=== PATIENT | female | born 1980 | race American Indian/Alaskan Native ===

== ENCOUNTER 2017-04-27 14:17 | Emergency (ER) | payer MEDICAID ==
[2017-04-27 14:58] VITALS: BP 147/86
[2017-04-27 15:38] LABS: Basophils % (Auto) 0.8 % (0.0-1.8); Eosinophils % (Auto) 2.6 % (0.0-4.3); Hematocrit 39.6 % (30.3-42.9); Hemoglobin 13.1 gm/dl (10.1-14.3); Mean Corpuscular HGB Conc 33 % (30-34); Mean Corpuscular Hemoglobin 29 pg (28-32); Mean Corpuscular Volume 88 fl (79-97); Platelet Count 208 K/mm3 (140-440); Red Blood Count 4.48 M/mm3 (3.65-5.03); Red Cell Distribution Width 13.4 % (13.2-15.2); White Blood Count 5.6 K/mm3 (4.5-11.0)
[2017-04-27 15:59] LABS: Anion Gap 18 mmol/L; Blood Urea Nitrogen 11 mg/dL (7-17); Carbon Dioxide 25 mmol/L (22-30); Chloride 103.8 mmol/L (98-107); Glucose 83 mg/dL (65-100); Sodium 143 mmol/L (137-145)
--- NOTE | 2017-04-27 17:02 | XRay Report ---
FINAL REPORT PROCEDURE: XR CHEST ROUTINE 2V TECHNIQUE: PA and lateral chest radiographs were obtained. CPT 58497 HISTORY: Shortness of breath COMPARISON: No prior studies are available for comparison. FINDINGS: Heart: Normal contour. Mediastinum/Vessels: Normal contour. Lungs/Pleural space: No infiltrate, effusion, or pneumothorax. Bony thorax: No acute osseous abnormality. Other: IMPRESSION: No pulmonary infiltrates are identified.
== END 2017-04-27 18:55 | disposition left against medical advice (07) ==
LOC: ED 14:17
DX: R07.9 Chest pain, unspecified (principal); R42 Dizziness and giddiness; Z53.21 Procedure and treatment not carried out due to patient leaving prior to being seen by health care provider
CPT/HCPCS: 36415; 71020; 80048; 82962; 83690; 84484; 84702; 85025; 93005; 93010

== ENCOUNTER 2017-05-02 09:01 | Outpatient (CLI) | payer MEDICAID, OTHER ==
--- NOTE | 2017-05-02 16:38 | Ultrasound Report ---
Transabdominal and transvaginal pelvic ultrasound. History: Pelvic pain. Findings: The uterus is normal in size and configuration with no focal abnormalities. The endometrial echo is normal and measures 4.2 mm in thickness. The ovaries are normal in size and configuration. There is a 1.2 cm in diameter cyst in the right ovary. Small follicular cysts are noted bilaterally. Minimal free fluid is seen within the cul-de-sac. Impression: Small right ovarian cyst with minimal free fluid.
== END 2017-05-02 09:02 | disposition home or self-care (01) ==
LOC: US 09:01
PROVIDERS: ATTEND Internal Medicine
DX: N83.01 Follicular cyst of right ovary (principal); N83.02 Follicular cyst of left ovary
CPT/HCPCS: 76830; 76856

== ENCOUNTER 2017-07-14 04:50 | Emergency (ER) | payer SELFPAY ==
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
[2017-07-14 07:59] VITALS: BP 102/67
[2017-07-14 08:12] LABS: Bacteria,Urine 1+ /HPF (Negative); Bilirubin,Urine NEG (Negative); Blood,Urine NEG (Negative); Ketones,Urine NEG (Negative); Leukocyte Esterase,Urine NEG (Negative); Mucus,Urine FEW /HPF; Nitrite,Urine NEG (Negative); Protein,Urine <15 mg/dL mg/dL (Negative); Urobilinogen,Urine < 2.0 mg/dL (<2.0); WBC,Urine < 1.0 /HPF (0.0-6.0)
== END 2017-07-14 08:15 | disposition home or self-care (01) ==
LOC: ED 04:50
DX: M79.1 Myalgia (principal); J06.9 Acute upper respiratory infection, unspecified; B34.9 Viral infection, unspecified; G89.29 Other chronic pain
CPT/HCPCS: 81001; 81025; 87116; 87430; 99283

== ENCOUNTER 2017-11-14 10:50 | Outpatient (CLI) | payer MEDICAID ==
[2017-11-14 11:45] LABS: Blood Urea Nitrogen 7 mg/dL (7-17)
--- NOTE | 2017-11-14 15:08 | Cat Scan Report ---
CT ABDOMEN PELVIS WITH CONTRAST: HISTORY: Abnormal uterine and vaginal bleeding. COMPARISON: none. TECHNIQUE: Helical CT in 1.25mm intervals following IV contrast. Sagittal and coronal reconstructions. FINDINGS: Lung bases: Normal. Liver: Normal. Biliary system: Normal. Pancreas: Normal. Spleen: Normal. Kidneys/ureters/bladder: Normal. Adrenal glands: Normal. Aorta: Normal. Intestines: Normal. Appendix: Normal. Pelvic viscera: The uterus is anteverted. No evidence for uterine mass or fibroid disease. The endometrium is not thickened. The left ovary is normal. An approximate 2 cm peripheral enhancing right ovarian cyst is noted. Ascites: None. Adenopathy: None. Musculoskeletal: Normal. IMPRESSION: 2 cm right ovarian cyst. No clear explanation for abnormal uterine/vaginal bleeding. Otherwise, unremarkable CT of the abdomen and pelvis.
== END 2017-11-14 10:51 | disposition home or self-care (01) ==
LOC: CT 10:50
PROVIDERS: ATTEND Internal Medicine
DX: N83.201 Unspecified ovarian cyst, right side (principal); R14.0 Abdominal distension (gaseous)
CPT/HCPCS: 36415; 74177; 82565; 84520; Q9967

== ENCOUNTER 2018-03-07 19:58 | Emergency (ER) | payer SELFPAY ==
[2018-03-07] MEDS ORDERED: ASPIRIN PO ONE (20:15)
[2018-03-07 20:42] LABS: Basophils % (Auto) 0.3 % (0.0-1.8); Eosinophils # (Auto) 0.1 K/mm3 (0.0-0.4); Eosinophils % (Auto) 1.2 % (0.0-4.3); Hematocrit 42.6 % (30.3-42.9); Hemoglobin 13.4 gm/dl (10.1-14.3); Lymphocytes # (Auto) 2.3 K/mm3 (1.2-5.4); Mean Corpuscular HGB Conc 32 % (30-34); Mean Corpuscular Hemoglobin 29 pg (28-32); Mean Corpuscular Volume 91 fl (79-97); Monocytes # (Auto) 0.5 K/mm3 (0.0-0.8); Monocytes % (Auto) 7.8 % (0.0-7.3); Platelet Count 209 K/mm3 (140-440); Red Blood Count 4.71 M/mm3 (3.65-5.03); Red Cell Distribution Width 13.7 % (13.2-15.2)
[2018-03-07 20:57] LABS: Alanine Aminotransferase 22 units/L (7-56); Albumin 4.1 g/dL (3.9-5); BUN/Creatinine Ratio 10; Blood Urea Nitrogen 8 mg/dL (7-17); Calcium 9.3 mg/dL (8.4-10.2); Hemolysis Index 5
--- NOTE | 2018-03-07 23:51 | XRay Report ---
FINAL REPORT PROCEDURE: XR CHEST ROUTINE 2V TECHNIQUE: PA and lateral chest radiographs were obtained. CPT 11508 HISTORY: sob COMPARISON: 04/27/2017 FINDINGS: Heart: Normal. Mediastinum/Vessels: Normal. Lungs/Pleural space: Normal. Bony thorax: No acute osseous abnormality. Other: IMPRESSION: There is no evidence of an acute cardiopulmonary process.
[2018-03-08 00:18] LABS: Bilirubin,Urine NEG (Negative); Blood,Urine NEG (Negative); Color,Urine Yellow (Yellow); Mucus,Urine 2+ /HPF; Protein,Urine <15 mg/dL mg/dL (Negative); Urobilinogen,Urine < 2.0 mg/dL (<2.0); WBC,Urine < 1.0 /HPF (0.0-6.0)
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
[2018-03-08] MEDS: TYLENOL PO ONE (07:52)
[2018-03-08 08:05] VITALS: BP 112/71
== END 2018-03-08 07:55 | disposition home or self-care (01) ==
LOC: ED 19:58
DX: R07.9 Chest pain, unspecified (principal); R10.9 Unspecified abdominal pain
CPT/HCPCS: 36415; 71046; 80053; 81001; 84484; 84703; 85025; 93005; 93010